=== PATIENT | male | born 1955 | race African-American/Black ===

== ENCOUNTER 2021-10-28 07:28 | Inpatient (IN) ==
[2021-10-28] MEDS ORDERED: riTUXimab 700 MG in SODIUM CHLORIDE 0.9% 500 ML IV ONE (07:46)
[2021-10-28] MEDS ORDERED: methylPREDNISolone SOD SUC 125 MG/2 ML VIAL IV STA (07:47)
[2021-10-28] MEDS ORDERED: SODIUM CHLORIDE 0.9% 1,000 ML IV PRN ×2 (07:48→10:05)
[2021-10-28 08:44] LABS: Basophils % 0.1 % (0.0-0.8); Eosinophils % 0.1 % (0.00-10.9); Hematocrit 34.4 VOL% (42.0-52.0); Hemoglobin 11.3 GM/DL (14.0-18.0); Immature Granulocytes % 1.2 %; Immature Granulocytes Absolute 0.09 #; Lymphocytes # 1.9 10*3/uL (1.4-4.0); Lymphocytes % 25.7 % (21.2-54.2); Mean Corpuscular HGB Conc 32.8 GM/DL (32-36); Mean Corpuscular Volume 80.4 FL (87-102); Monocytes # 0.1 10*3/uL (0.11-0.8); Monocytes % 1.1 % (1.7-12.7); Neutrophils % 71.8 % (38.7-73.9); Red Blood Count 4.28 MC/CUMM (3.8-5.5); Red Cell Distribution Width 14.9 % (9.3-17.3); White Blood Count 7.6 T/CUMM (4-12)
[2021-10-28 08:51] LABS: Platelet Count 1 T/CUMM (130-400); Platelet Estimate Decreased
[2021-10-28 09:03] LABS: PT Patient Result 11.1 SECS (10.1-12.1); Partial Thromboplastin Time 23.7 SECS (23.7-32.9)
[2021-10-28 09:04] LABS: Albumin 3.5 G/DL (3.4-5.0); Bilirubin,Total 0.9 MG/DL (0.20-1.00); Calcium 9.2 MG/DL (8.5-10.1); Osmolality,Calculated 279.8 MOS/KG (273-304); Potassium 4.1 MMOL/L (3.5-5.1); Total Protein 6.5 G/DL (6.4-8.2)
[2021-10-28] MEDS ORDERED: ZALEPLON 5 MG CAPSULE PO PRN (10:31)
[2021-10-28] MEDS ORDERED: GLUCAGON 1 MG VIAL IM PRN (10:31)
[2021-10-28] MEDS ORDERED: ONDANSETRON 4 MG/2 ML VIAL IV PRN (10:31)
[2021-10-28] MEDS ORDERED: DEXTROSE 10% 250 ML BAG IV PRN (10:53)
[2021-10-28] MEDS ORDERED: SODIUM CHLORIDE 0.9% IV ONE ×3 (12:00→18:00)
[2021-10-28] MEDS ORDERED: RITUXIMAB ABBS IV ONE ×3 (12:00→18:00)
[2021-10-28] MEDS: ACETAMINOPHEN 325 MG TABLET PO PRN (15:51)
[2021-10-28] MEDS: methylPREDNISolone SOD SUC INJ 1,000 MG in SODIUM CHLORIDE 0.9% 100 ML IV SCH (22:04)
[2021-10-29 05:20] LABS: Basophils % 0.1 % (0.0-0.8); Hematocrit 26.3 VOL% (42.0-52.0); Hemoglobin 8.8 GM/DL (14.0-18.0); Immature Granulocytes % 0.8 %; Immature Granulocytes Absolute 0.08 #; Lymphocytes % 10.3 % (21.2-54.2); Mean Corpuscular HGB Conc 33.5 GM/DL (32-36); Mean Corpuscular Volume 80.2 FL (87-102); Monocytes # 0.3 10*3/uL (0.11-0.8); Monocytes % 2.9 % (1.7-12.7); Neutrophils % 85.9 % (38.7-73.9); Red Blood Count 3.28 MC/CUMM (3.8-5.5); White Blood Count 9.8 T/CUMM (4-12)
[2021-10-29 05:24] LABS: Platelet Count 0 T/CUMM (130-400)
[2021-10-29] MEDS ORDERED: SODIUM CHLORIDE 0.9% 1,000 ML IV PRN ×6 (05:30→23:59)
[2021-10-29 05:54] LABS: Hypochromia Slight; Microcytosis Slight; Platelet Estimate Decreased
[2021-10-29 06:06] LABS: Albumin 3.1 G/DL (3.4-5.0); Bilirubin,Total 0.69 MG/DL (0.20-1.00); Calcium 8.9 MG/DL (8.5-10.1); Total Protein 5.5 G/DL (6.4-8.2)
[2021-10-29 06:07] LABS: Osmolality,Calculated 289.4 MOS/KG (273-304); Potassium 4.3 MMOL/L (3.5-5.1)
[2021-10-29] MEDS ORDERED: IMMUNE GLOBULIN 10% 40 GM in PREMIX 1 EACH IV ONE (06:41)
[2021-10-29] MEDS: methylPREDNISolone SOD SUC INJ 1,000 MG in SODIUM CHLORIDE 0.9% 100 ML IV SCH ×2 (09:02→21:50)
[2021-10-29] MEDS: PANTOPRAZOLE 40 MG TABLET PO SCH (09:03)
[2021-10-29] MEDS ORDERED: DOCUSATE SODIUM 100 MG CAPSULE PO PRN (13:02)
[2021-10-29 15:15] LABS: Basophils % 0.1 % (0.0-0.8); Hematocrit 24.4 VOL% (42.0-52.0); Immature Granulocytes % 1.9 %; Immature Granulocytes Absolute 0.22 #; Lymphocytes # 1.1 10*3/uL (1.4-4.0); Lymphocytes % 9.6 % (21.2-54.2); Mean Corpuscular HGB Conc 32.8 GM/DL (32-36); Mean Corpuscular Volume 81.6 FL (87-102); Monocytes # 0.3 10*3/uL (0.11-0.8); Monocytes % 2.5 % (1.7-12.7); Neutrophils % 85.9 % (38.7-73.9); Red Blood Count 2.99 MC/CUMM (3.8-5.5); Red Cell Distribution Width 15.4 % (9.3-17.3); White Blood Count 11.4 T/CUMM (4-12)
[2021-10-29 15:19] LABS: Platelet Count 0 T/CUMM (130-400)
[2021-10-29] MEDS: ACETAMINOPHEN 325 MG TABLET PO PRN (18:27)
[2021-10-29 23:02] LABS: Basophils % 0.1 % (0.0-0.8); Hematocrit 26.1 VOL% (42.0-52.0); Hemoglobin 8.8 GM/DL (14.0-18.0); Immature Granulocytes % 1.1 %; Immature Granulocytes Absolute 0.13 #; Lymphocytes % 8.8 % (21.2-54.2); Mean Corpuscular HGB Conc 33.7 GM/DL (32-36); Mean Corpuscular Volume 82.6 FL (87-102); Monocytes # 0.4 10*3/uL (0.11-0.8); Monocytes % 3.5 % (1.7-12.7); NRBC # 0.02 10*3/uL; Neutrophils % 86.5 % (38.7-73.9); Red Blood Count 3.16 MC/CUMM (3.8-5.5); Red Cell Distribution Width 15.6 % (9.3-17.3); White Blood Count 11.4 T/CUMM (4-12)
[2021-10-29 23:03] LABS: Platelet Count 1 T/CUMM (130-400)
[2021-10-30] MEDS: ACETAMINOPHEN 325 MG TABLET PO PRN ×2 (06:34→21:43)
[2021-10-30 06:39] LABS: Basophils % 0.1 % (0.0-0.8); Hematocrit 23.9 VOL% (42.0-52.0); Hemoglobin 8.1 GM/DL (14.0-18.0); Immature Granulocytes % 2.2 %; Immature Granulocytes Absolute 0.23 #; Lymphocytes # 1.2 10*3/uL (1.4-4.0); Lymphocytes % 11.2 % (21.2-54.2); Mean Corpuscular HGB Conc 33.9 GM/DL (32-36); Mean Corpuscular Volume 81.6 FL (87-102); Monocytes # 0.3 10*3/uL (0.11-0.8); Monocytes % 2.6 % (1.7-12.7); NRBC # 0.02 10*3/uL; Neutrophils % 83.9 % (38.7-73.9); Red Blood Count 2.93 MC/CUMM (3.8-5.5); Red Cell Distribution Width 15.5 % (9.3-17.3); White Blood Count 10.7 T/CUMM (4-12)
[2021-10-30 06:41] LABS: Platelet Count 1 T/CUMM (130-400)
[2021-10-30 06:53] LABS: Calcium 8.6 MG/DL (8.5-10.1); Osmolality,Calculated 292.3 MOS/KG (273-304)
[2021-10-30 07:00] LABS: Hypochromia Slight; Microcytosis Slight; Platelet Estimate Decreased
[2021-10-30] MEDS ORDERED: SODIUM CHLORIDE 0.9% 1,000 ML IV PRN (07:35)
[2021-10-30] MEDS: methylPREDNISolone SOD SUC INJ 1,000 MG in SODIUM CHLORIDE 0.9% 100 ML IV SCH (09:54)
[2021-10-30] MEDS: PANTOPRAZOLE 40 MG TABLET PO SCH (09:57)
[2021-10-30] MEDS: hydrALAZINE 10 MG TABLET PO SCH ×2 (09:57→21:28)
[2021-10-30] MEDS ORDERED: IMMUNE GLOBULIN 10% 40 GM in PREMIX 1 EACH IV ONE (10:00)
[2021-10-30] MEDS ORDERED: romiPLOStim 125 MCG VIAL SUBCUT ONE (10:00)
[2021-10-30 14:01] LABS: Basophils % 0.1 % (0.0-0.8); Hematocrit 22.5 VOL% (42.0-52.0); Hemoglobin 7.6 GM/DL (14.0-18.0); Immature Granulocytes % 1.9 %; Immature Granulocytes Absolute 0.19 #; Lymphocytes # 1.1 10*3/uL (1.4-4.0); Lymphocytes % 10.5 % (21.2-54.2); Mean Corpuscular HGB Conc 33.8 GM/DL (32-36); Mean Corpuscular Volume 82.4 FL (87-102); Monocytes # 0.2 10*3/uL (0.11-0.8); NRBC # 0.02 10*3/uL; Neutrophils % 85.5 % (38.7-73.9); Red Blood Count 2.73 MC/CUMM (3.8-5.5); Red Cell Distribution Width 15.8 % (9.3-17.3); White Blood Count 10.2 T/CUMM (4-12)
[2021-10-30 14:08] LABS: Platelet Count 1 T/CUMM (130-400)
[2021-10-30 14:43] LABS: Platelet Estimate Decreased
[2021-10-31] MEDS: methylPREDNISolone SOD SUC INJ 1,000 MG in SODIUM CHLORIDE 0.9% 100 ML IV SCH ×3 (01:30→20:18)
[2021-10-31 05:49] LABS: Basophils % 0.1 % (0.0-0.8); Hematocrit 18.4 VOL% (42.0-52.0); Immature Granulocytes % 2.3 %; Immature Granulocytes Absolute 0.26 #; Lymphocytes # 1.4 10*3/uL (1.4-4.0); Lymphocytes % 12.7 % (21.2-54.2); Mean Corpuscular HGB Conc 33.7 GM/DL (32-36); Mean Corpuscular Volume 82.1 FL (87-102); Monocytes # 0.7 10*3/uL (0.11-0.8); Monocytes % 6.1 % (1.7-12.7); NRBC # 0.08 10*3/uL; Neutrophils % 78.8 % (38.7-73.9); Red Blood Count 2.24 MC/CUMM (3.8-5.5); White Blood Count 11.2 T/CUMM (4-12)
[2021-10-31 05:52] LABS: Hemoglobin 6.2 GM/DL (14.0-18.0); Platelet Count 0 T/CUMM (130-400)
[2021-10-31 06:00] LABS: Calcium 7.9 MG/DL (8.5-10.1); Osmolality,Calculated 289.1 MOS/KG (273-304); Potassium 3.8 MMOL/L (3.5-5.1)
[2021-10-31 06:06] LABS: Hypochromia Slight; Microcytosis Slight; Platelet Estimate Decreased
[2021-10-31] MEDS ORDERED: SODIUM CHLORIDE 0.9% 1,000 ML IV PRN ×2 (06:26→06:28)
[2021-10-31] MEDS ORDERED: riTUXimab 700 MG in SODIUM CHLORIDE 0.9% 500 ML IV ONE (08:49)
[2021-10-31] MEDS: PANTOPRAZOLE 40 MG TABLET PO SCH ×2 (09:35→20:18)
[2021-10-31] MEDS: hydrALAZINE 25 MG TABLET PO SCH ×3 (09:35→20:18)
[2021-10-31] MEDS ORDERED: IMMUNE GLOBULIN 10% 40 GM in PREMIX 1 EACH IV ONE (10:00)
[2021-10-31] MEDS: ACETAMINOPHEN 325 MG TABLET PO PRN (15:41)
[2021-10-31] MEDS ORDERED: SODIUM CHLORIDE 0.9% IV ONE (16:00)
[2021-10-31] MEDS ORDERED: RITUXIMAB ABBS IV ONE (16:00)
[2021-11-01 05:18] LABS: Calcium 7.7 MG/DL (8.5-10.1); Osmolality,Calculated 289.3 MOS/KG (273-304); Potassium 4.1 MMOL/L (3.5-5.1)
[2021-11-01 06:12] LABS: Basophils % 0.2 % (0.0-0.8); Hematocrit 18.9 VOL% (42.0-52.0); Immature Granulocytes % 6.6 %; Immature Granulocytes Absolute 0.65 #; Lymphocytes # 1.6 10*3/uL (1.4-4.0); Lymphocytes % 16.2 % (21.2-54.2); Mean Corpuscular HGB Conc 33.9 GM/DL (32-36); Mean Corpuscular Volume 85.5 FL (87-102); Monocytes # 0.4 10*3/uL (0.11-0.8); Monocytes % 4.5 % (1.7-12.7); Neutrophils % 72.5 % (38.7-73.9); Red Blood Count 2.21 MC/CUMM (3.8-5.5); Red Cell Distribution Width 16.2 % (9.3-17.3); White Blood Count 9.8 T/CUMM (4-12)
[2021-11-01 06:20] LABS: Hemoglobin 6.4 GM/DL (14.0-18.0); Platelet Count 1 T/CUMM (130-400)
[2021-11-01] MEDS ORDERED: SODIUM CHLORIDE 0.9% 1,000 ML IV PRN ×2 (06:25→10:23)
[2021-11-01 06:59] LABS: Band Neutrophils 6 % (0-10); Lymphocytes 20 % (20-55); Metamyelocytes 1 %; Myelocytes 1 %; Nucleated Red Blood Cells 3 (0-5); Total Cells Counted 100
[2021-11-01 07:00] LABS: Microcytosis 1+; Polychromasia Slight
[2021-11-01 07:01] LABS: Anisocytosis 1+; Hypochromia Slight
[2021-11-01 07:02] LABS: Platelet Estimate Decreased
[2021-11-01] MEDS: methylPREDNISolone SOD SUC INJ 1,000 MG in SODIUM CHLORIDE 0.9% 100 ML IV SCH (09:09)
[2021-11-01] MEDS: hydrALAZINE 25 MG TABLET PO SCH ×3 (09:09→20:18)
[2021-11-01] MEDS: PANTOPRAZOLE 40 MG TABLET PO SCH ×2 (09:09→20:18)
[2021-11-01] MEDS ORDERED: AMINOCAPROIC ACID INJ 5,000 MG in SODIUM CHLORIDE 0.9% 250 ML IV ONE (10:26)
[2021-11-01] MEDS ORDERED: AMINOCAPROIC ACID INJ 5,000 MG in SODIUM CHLORIDE 0.9% 230 ML IV SCH (10:30)
[2021-11-01] MEDS ORDERED: IMMUNE GLOBULIN 10% 40 GM in PREMIX 1 EACH IV SCH (10:30)
[2021-11-01 17:40] LABS: Basophils % 0.1 % (0.0-0.8); Hematocrit 22.9 VOL% (42.0-52.0); Immature Granulocytes % 3.6 %; Immature Granulocytes Absolute 0.55 #; Lymphocytes # 1.1 10*3/uL (1.4-4.0); Lymphocytes % 6.9 % (21.2-54.2); Mean Corpuscular HGB Conc 33.6 GM/DL (32-36); Mean Corpuscular Volume 86.7 FL (87-102); Monocytes # 1.1 10*3/uL (0.11-0.8); Monocytes % 7.1 % (1.7-12.7); NRBC # 0.52 10*3/uL; Neutrophils % 82.3 % (38.7-73.9); Red Blood Count 2.64 MC/CUMM (3.8-5.5); Red Cell Distribution Width 16.3 % (9.3-17.3); White Blood Count 15.5 T/CUMM (4-12)
[2021-11-01 17:43] LABS: Hemoglobin 7.7 GM/DL (14.0-18.0)
[2021-11-01] MEDS: ACETAMINOPHEN 325 MG TABLET PO PRN (17:45)
[2021-11-01 17:48] LABS: Platelet Count 8 T/CUMM (130-400)
[2021-11-01 18:24] LABS: Band Neutrophils 1 % (0-10); Lymphocytes 7 % (20-55); Metamyelocytes 1 %; Microcytosis 1+; Nucleated Red Blood Cells 6 (0-5); Total Cells Counted 100
[2021-11-01 18:25] LABS: Hypochromia Slight; Platelet Estimate Decreased; Polychromasia Slight
[2021-11-01] MEDS: methylPREDNISolone SOD SUC INJ 500 MG in SODIUM CHLORIDE 0.9% 100 ML IV SCH (22:55)
[2021-11-02 06:08] LABS: Basophils % 0.1 % (0.0-0.8); Hematocrit 18.8 VOL% (42.0-52.0); Hemoglobin 6.6 GM/DL (14.0-18.0); Immature Granulocytes % 5.4 %; Immature Granulocytes Absolute 0.46 #; Lymphocytes # 0.9 10*3/uL (1.4-4.0); Mean Corpuscular HGB Conc 35.1 GM/DL (32-36); Mean Corpuscular Volume 86.2 FL (87-102); Monocytes # 0.4 10*3/uL (0.11-0.8); Monocytes % 4.8 % (1.7-12.7); NRBC # 0.28 10*3/uL; Neutrophils % 79.7 % (38.7-73.9); Red Blood Count 2.18 MC/CUMM (3.8-5.5); White Blood Count 8.5 T/CUMM (4-12)
[2021-11-02 06:19] LABS: Platelet Count 6 T/CUMM (130-400)
[2021-11-02 06:23] LABS: INR 1.1; PT Patient Result 12.3 SECS (10.1-12.1); Partial Thromboplastin Time 24.4 SECS (23.7-32.9)
[2021-11-02] MEDS ORDERED: SODIUM CHLORIDE 0.9% 1,000 ML IV PRN ×4 (06:24→07:08)
[2021-11-02] MEDS: ACETAMINOPHEN 325 MG TABLET PO PRN (06:29)
[2021-11-02 07:12] LABS: Bilirubin,Total 0.7 MG/DL (0.20-1.00); Calcium 7.4 MG/DL (8.5-10.1); Osmolality,Calculated 286.4 MOS/KG (273-304); Potassium 3.8 MMOL/L (3.5-5.1); Total Protein 5.7 G/DL (6.4-8.2)
[2021-11-02 08:11] LABS: Band Neutrophils 1 % (0-10); Hypochromia 1+; Lymphocytes 11 % (20-55); Metamyelocytes 1 %; Microcytosis 1+; Nucleated Red Blood Cells 1 (0-5); Total Cells Counted 100
[2021-11-02 08:12] LABS: Anisocytosis 1+; Platelet Estimate Decreased; Polychromasia Slight
[2021-11-02] MEDS: PANTOPRAZOLE 40 MG TABLET PO SCH ×2 (09:31→20:18)
[2021-11-02] MEDS: hydrALAZINE 25 MG TABLET PO SCH ×3 (09:31→20:18)
[2021-11-02] MEDS ORDERED: IMMUNE GLOBULIN 10% 20 GM, IMMUNE GLOBULIN 10% 20 GM in PREMIX 1 EACH IV SCH (10:30)
[2021-11-02] MEDS: methylPREDNISolone SOD SUC INJ 500 MG in SODIUM CHLORIDE 0.9% 100 ML IV SCH ×2 (11:58→23:01)
[2021-11-02] MEDS ORDERED: AMINOCAPROIC ACID 500 MG TABLET PO SCH (14:00)
[2021-11-02 20:55] LABS: Hematocrit 22.1 VOL% (42.0-52.0); Hemoglobin 7.6 GM/DL (14.0-18.0)
[2021-11-02] MEDS: AMINOCAPROIC ACID 500 MG TABLET PO SCH (21:54)
[2021-11-03 06:05] LABS: Basophils % 0.2 % (0.0-0.8); Hematocrit 24.6 VOL% (42.0-52.0); Hemoglobin 8.4 GM/DL (14.0-18.0); Immature Granulocytes % 7.3 %; Immature Granulocytes Absolute 0.67 #; Lymphocytes # 1.1 10*3/uL (1.4-4.0); Lymphocytes % 11.8 % (21.2-54.2); Mean Corpuscular HGB Conc 34.1 GM/DL (32-36); Mean Corpuscular Volume 87.5 FL (87-102); Monocytes # 0.3 10*3/uL (0.11-0.8); Monocytes % 3.7 % (1.7-12.7); NRBC # 0.24 10*3/uL; Red Blood Count 2.81 MC/CUMM (3.8-5.5); Red Cell Distribution Width 17.9 % (9.3-17.3); White Blood Count 9.2 T/CUMM (4-12)
[2021-11-03] MEDS: AMINOCAPROIC ACID 500 MG TABLET PO SCH ×3 (06:11→21:01)
[2021-11-03 06:15] LABS: Platelet Count 23 T/CUMM (130-400)
[2021-11-03 06:34] LABS: Albumin 2.1 G/DL (3.4-5.0); Bilirubin,Total 0.7 MG/DL (0.20-1.00); Calcium 7.4 MG/DL (8.5-10.1); Osmolality,Calculated 283.5 MOS/KG (273-304); Potassium 3.7 MMOL/L (3.5-5.1); Total Protein 6.4 G/DL (6.4-8.2)
[2021-11-03 06:42] LABS: Band Neutrophils 1 % (0-10); Lymphocytes 12 % (20-55); Metamyelocytes 3 %; Total Cells Counted 100
[2021-11-03 06:43] LABS: Anisocytosis 1+; Microcytosis 1+; Platelet Estimate Decreased; Polychromasia Slight
[2021-11-03] MEDS: PANTOPRAZOLE 40 MG TABLET PO SCH ×2 (08:32→20:59)
[2021-11-03] MEDS: hydrALAZINE 25 MG TABLET PO SCH ×3 (08:32→20:59)
[2021-11-03] MEDS: methylPREDNISolone SOD SUC INJ 500 MG in SODIUM CHLORIDE 0.9% 100 ML IV SCH ×2 (11:02→20:59)
[2021-11-04 05:09] LABS: Basophils % 0.1 % (0.0-0.8); Hematocrit 24.6 VOL% (42.0-52.0); Hemoglobin 8.3 GM/DL (14.0-18.0); Immature Granulocytes % 9.7 %; Immature Granulocytes Absolute 0.88 #; Lymphocytes # 0.8 10*3/uL (1.4-4.0); Mean Corpuscular HGB Conc 33.7 GM/DL (32-36); Mean Corpuscular Volume 86.9 FL (87-102); Mean Platelet Volume 12.4 FL (9.6-12.0); Monocytes # 0.3 10*3/uL (0.11-0.8); Monocytes % 3.7 % (1.7-12.7); Neutrophils % 77.5 % (38.7-73.9); Red Blood Count 2.83 MC/CUMM (3.8-5.5)
[2021-11-04 05:13] LABS: Platelet Count 36 T/CUMM (130-400)
[2021-11-04 05:30] LABS: Band Neutrophils 1 % (0-10); Hypochromia Slight; Lymphocytes 9 % (20-55); Microcytosis 1+; Myelocytes 1 %; Nucleated Red Blood Cells 4 (0-5); Tear Drop Cells Slight; Total Cells Counted 100
[2021-11-04 05:31] LABS: Platelet Estimate Decreased; Polychromasia Slight
[2021-11-04 05:32] LABS: Albumin 2.2 G/DL (3.4-5.0); Bilirubin,Total 0.8 MG/DL (0.20-1.00); Calcium 7.4 MG/DL (8.5-10.1); Osmolality,Calculated 286.4 MOS/KG (273-304); Potassium 3.8 MMOL/L (3.5-5.1); Total Protein 6.1 G/DL (6.4-8.2)
[2021-11-04] MEDS: AMINOCAPROIC ACID 500 MG TABLET PO SCH ×3 (05:34→21:01)
[2021-11-04] MEDS: PANTOPRAZOLE 40 MG TABLET PO SCH ×2 (09:34→20:57)
[2021-11-04] MEDS: hydrALAZINE 25 MG TABLET PO SCH ×3 (09:34→20:57)
[2021-11-04] MEDS: LOSARTAN 50 MG TABLET PO SCH (09:35)
[2021-11-04] MEDS: methylPREDNISolone SOD SUC INJ 125 MG in SODIUM CHLORIDE 0.9% 100 ML IV SCH ×2 (09:36→20:57)
[2021-11-05 04:51] LABS: Basophils % 0.2 % (0.0-0.8); Hematocrit 25.9 VOL% (42.0-52.0); Hemoglobin 8.4 GM/DL (14.0-18.0); Immature Granulocytes % 11.9 %; Immature Granulocytes Absolute 1.22 #; Lymphocytes # 0.9 10*3/uL (1.4-4.0); Lymphocytes % 8.5 % (21.2-54.2); Mean Corpuscular HGB Conc 32.4 GM/DL (32-36); Mean Corpuscular Volume 88.7 FL (87-102); Mean Platelet Volume 12.8 FL (9.6-12.0); Monocytes # 0.6 10*3/uL (0.11-0.8); Monocytes % 5.6 % (1.7-12.7); NRBC # 0.15 10*3/uL; Neutrophils % 73.8 % (38.7-73.9); Platelet Count 65 T/CUMM (130-400); Red Blood Count 2.92 MC/CUMM (3.8-5.5); Red Cell Distribution Width 18.4 % (9.3-17.3); White Blood Count 10.2 T/CUMM (4-12)
[2021-11-05 05:11] LABS: Albumin 2.2 G/DL (3.4-5.0); Bilirubin,Total 0.8 MG/DL (0.20-1.00); Calcium 7.8 MG/DL (8.5-10.1); Osmolality,Calculated 285.5 MOS/KG (273-304); Potassium 3.9 MMOL/L (3.5-5.1); Total Protein 5.8 G/DL (6.4-8.2)
[2021-11-05 05:23] LABS: Band Neutrophils 4 % (0-10); Lymphocytes 12 % (20-55); Metamyelocytes 2 %; Nucleated Red Blood Cells 2 /100 WBC (0-5); Total Cells Counted 100
[2021-11-05 05:24] LABS: Hypochromia Slight; Microcytosis 1+; Polychromasia Slight
[2021-11-05 05:25] LABS: Platelet Estimate Decreased
[2021-11-05] MEDS: AMINOCAPROIC ACID 500 MG TABLET PO SCH (05:32)
[2021-11-05] MEDS: LOSARTAN 50 MG TABLET PO SCH (09:04)
[2021-11-05] MEDS: hydrALAZINE 25 MG TABLET PO SCH (09:04)
[2021-11-05] MEDS: PANTOPRAZOLE 40 MG TABLET PO SCH (09:05)
[2021-11-05 15:39] VITALS: BP 152/91
[2021-11-05] MEDS ORDERED: methylPREDNISolone SOD SUC INJ 125 MG in SODIUM CHLORIDE 0.9% 100 ML IV SCH (21:00)
== END 2021-11-05 12:51 | disposition home or self-care (01) | DRG 813 ==
LOC: EDBD → EDUNIT# → N.ED 07:28 → SUATTDRO 10:34 → N.EDINP 10:34 → N.TELES 12:58
PROVIDERS: ADMIT Family Medicine; ATTEND Family Medicine